=== PATIENT | male | born 1965 | race Caucasian/White ===

== ENCOUNTER 2025-02-25 15:16 | Inpatient (IN) | payer OTHER, SELFPAY ==
[2025-02-25] VITALS (12 sets, daily range): BP systolic 112–210; BP diastolic 73–119; BMI 24.8; BMI 22.8
--- NOTE | 2025-02-25 10:20 | ED.GENMED ---
History of Present Illness
General
Chief Complaint: Weakness
Source: patient
Exam Limitations: none
Time Seen by Provider: 02/25/25 10:10
History of Present Illness
History of Present Illness:
See MDM
Past History
Past History
ED Past Medical History: None
ED Past Surgical History: None
Social History
Tobacco: Non-smoker
Alcohol: None
Phy Exam
Physical Exam
Physical Exam:
See MDM
Course
Orders/Labs/Results
Orders:
Orders
02/25/25 10:17
Iohexol [Omnipaque] See Protocol PO NOW STA
02/25/25 10:18
Electrocardiogram (*1) Urgent
Reason for Study: Fatigue / Weakness
EKG- Treatment ONCE
02/25/25 10:19
CT Abd/pel (oral only)-DH Only Urgent
Comment: modified due to elevated optical scientist
Reason For Exam: general abd pain and weakness
0.9% Sodium Chloride 1000 ml [Nss] 1,000 ml IV BOLUS
02/25/25 10:22
Complete Blood Count/With Diff Urgent
Comprehensive Metabolic Panel Urgent
Lipase Urgent
Magnesium Urgent
PTT Urgent
Prothrombin Time Urgent
Troponin I Urgent
02/25/25 10:33
Iohexol [Omnipaque] See Protocol PO NOW STA
02/25/25 10:35
Kenny Placement- Treatment ONCE
Reason for insertion: Acute Retention
02/25/25 10:56
Cardiac Monitoring- Treatment ONCE
Calcium Gluconate 1,000 mg IV NOW STA
Dextrose 50%-Water [Dextrose 50% Syringe] 12.5 grams IV [id number] PRN
Dextrose 50%-Water [Dextrose 50% Syringe] 25 grams IV NOW STA
Insulin Human Regular [Novolin R] 10 units IV NOW STA
Sodium Bicarbonate 50 meq IV NOW STA
Sodium Zirconium Cyclosilicate [Lokelma] 10 gram PO NOW STA
02/25/25 10:57
Bedside Glucose PRE IV Insulin- HyperK+ NOW
02/25/25 11:04
Consult Urology [UROLOGY CONSULT] Routine
Consulting Provider: Ino Mishra Jr.
Was physician already notified: Yes
02/25/25 11:05
Tamsulosin [Flomax] 0.4 mg PO NOW STA
02/25/25 11:12
Urinalysis Reflex To Culture Urgent
Date Specimen was Collected: 02/25/25
Time Specimen was Collected: 11:09
Urine Microscopic Reflex Cult Urgent
02/25/25 12:27
Bedside Glucose POST IV Insulin- HyperK+ Q1HX2,Q2HX2
02/25/25 13:54
Potassium Urgent
02/25/25 13:58
Aspirin 325 mg PO NOW STA
02/25/25 14:00
Labetalol HCl [Trandate] 10 mg IV NOW STA
02/25/25 14:02
Morphine Sulfate 4 mg IV NOW STA
Abnormal Lab Results
02/25/25 02/25/25 02/25/25
10:22 11:12 12:29
RBC 4.41 L 10^6/uL
(4.70-6.10)
Hgb 12.4 L g/dL
(13.0-18.0)
Hct 37.3 L %
(39.0-52.0)
MPV 11.2 H fL
(7.4-10.4)
Absolute Neuts (auto) 6.9 H 10^3/uL
(1.4-6.5)
Absolute Lymphs (auto) 1.0 L 10^3/uL
(1.2-3.4)
Neutrophils % 78.0 H %
(42.2-75.2)
Lymphocytes % 11.6 L %
(20.5-51.1)
PT 14.9 H Sec
(11.4-14.6)
Potassium 6.8 H* mmol/L
(3.5-5.1)
Carbon Dioxide 14 L* mmol/L
(22-30)
BUN 116 H* mg/dl
(9-20)
Creatinine 18.2 H* mg/dL
(0.7-1.3)
Glucose 107 H mg/dl
(70-99)
AST 14 L U/L
(17-59)
Troponin I 0.484 H* ng/ml
Ur Occult Blood Reflex 4+ A
(Negative)
Urine RBC 30-40 A /HPF
(0-2)
POC Glucose 113 H mg/dl
(70-99)
02/25/25
13:28
RBC
Hgb
Hct
MPV
Absolute Neuts (auto)
Absolute Lymphs (auto)
Neutrophils %
Lymphocytes %
PT
Potassium
Carbon Dioxide
BUN
Creatinine
Glucose
AST
Troponin I
Ur Occult Blood Reflex
Urine RBC
POC Glucose 117 H mg/dl
(70-99)
02/25/25 10:22
Vital Signs
Initial and Last Documented VS:
Initial Vital Signs
Temp Pulse Resp BP Pulse Ox
98.0 F 72 18 187/104 99
02/25/25 10:11 02/25/25 10:11 02/25/25 10:11 02/25/25 10:11 02/25/25 10:11
Last Documented Vital Signs
Temp Pulse Resp BP Pulse Ox
97.7 F 79 21 174/103 98
02/25/25 11:35 02/25/25 13:00 02/25/25 13:00 02/25/25 13:00 02/25/25 13:00
MDM/Problems Addressed
Differential Diagnosis Includes:
HPI and MDM Narrative:
59-year-old male presenting for evaluation of approximately 1 month of fatigue and malaise. Patient states it started with what felt like prostate issues. He was having trouble urinating. He then got the GI bug and started develop urinary
incontinence when he slept. Now he is starting to notice mucus when he has the stool. He states he feels 'off'. He does have a strong family history of colon cancer but states he has had recent colonoscopies which had small polyps. He did go to
urgent care given duration of symptoms and they did blood work. Patient was found to have mild hyperkalemia and elevated creatinine. On exam, patient is weak and fatigued. Will give IV fluids. Will obtain bladder scan with concern for overflow
incontinence. Will obtain CT Abd/pelvis to look for cancer versus infection etiology
Physical exam
General: Weak and fatigued
HEENT: protecting airway. Dry mucous membranes
Neck: appears supple
CV: No evidence of cyanosis. Regular rate and rhythm
Resp: No accessory muscle use
Abd: Mildly distended but nontender
Extremities: No deformities
Neuro: alert
Psych: Normal affect
Skin: Intact
Problems Addressed including Acute and Chronic Conditions affecting care:
1. Generalized weakness and fatigue
Acuity: acute
Prognosis: stable
Details: Will obtain basic blood work to rule out any metabolic abnormality
2. Abdominal pain
Acuity: acute
Prognosis: stable
Details: Will obtain CT abdomen/pelvis
3. Dehydration
Acuity: acute
Prognosis: stable
Details: Will give IV fluids
4. Post renal obstruction
Acuity: acute
Prognosis: unstable
Details: Bedside bladder scan shows greater than 900 mL of urine. This could explain his acute renal failure. Will place a Kenny catheter
5. Hyperkalemia
Acuity: Unstable
Prognosis: Likely in setting of acute renal failure from postrenal obstruction
Details: Patient requiring insulin, bicarb and calcium and Lokelma
Updates
10:30 AM bedside bladder scan shows greater than 900 mL of urine. Patient will attempt to urinate but will plan on Kenny catheter
11 AM blood work consistent with acute renal failure and hyperkalemia. Will give insulin, Lokelma, calcium and bicarb
2 PM I updated patient on CT findings then I raised concern for metastatic disease in his spine. Patient does state that he has underlying back pain.
Troponin also found to be elevated but EKG nonischemic. Unsure if he had a recent cardiac event. Will give aspirin
Differential Diagnosis (but not limited to): Pancreatic cancer, colon cancer, distended bladder, renal disease
Testing considered: Lactic acid
Drug therapy (if applicable): OTC meds, please see d/c instruction regarding Rx drugs
Amount and/or Complexity of Data Reviewed
Clinical info obtained from: Patient
External data reviewed: N/A
Labs I independently reviewed (but not limited to): Acute renal failure
Radiology: The CT scan was personally and independently reviewed. In addition, official CT report reviewed.
Pulse Ox: not hypoxic
EKG independently reviewed: Sinus rhythm, normal axis, no STEMI, concern for peaked T waves
Assistant Activities Director: Sinus rhythm
Critical Care: The high probability of a clinically significant, sudden or life threatening deterioration of the cardiovascular/ system(s) required my full and direct attention, intervention and personal management. The aggregate critical care
time was 33 minutes. This time is in addition to time spent performing reported procedures but includes the following:
[x] Data Review and interpretation
[x] Patient assessment and monitoring of vital signs
[x] Documentation
[x] Medication orders and management
Risk of Complication:
Social Determinants of health: Good social support
Discussed with other providers: Urologist, hospitalist
Escalation of Care includes Admit/Obs: Given acute renal failure, will admit
Occasional wrong word or 'sound a like' substitutions may have occurred due to the inherent limitations of voice recognition software. Read the chart carefully and recognize, using context, where substitutions have occurred.
*Critical Care Note
Total Time (30-74mins, 75-104mins- exclusive of procedures): 33 min
ED Attending Note
-
Portions of this chart may have been created with voice recognition software.� Occasional wrong word or��sound alike� substitutions may have occurred due to the inherent limitations of voice recognition software.
Discharge Plan
Departure
Patient Disposition: Admit
Date of Disposition: 02/25/25
Time of Disposition: 14:04
Admit to: Telemetry
Presentation/result/management discussed w/ accepting MD/DO: Hospitalist
Discharge Problem:
Acute renal failure (ARF), Acute urinary retention, Hyperkalemia
Prescriptions:
No Action
No Current Medications
0
Referrals:
NONE,* [Family Provider] -
Interventions
Interventions:
*Risk Screen - Suicide Last Done: 02/25/25 10:11
*General Assessment Last Done: 02/25/25 10:11
*Neglect/Abuse Screening Last Done: 02/25/25 10:11
*ED- Fall Risk Assessment Last Done: 02/25/25 10:11
*ED COVID-19 Vaccine History Last Done: 02/25/25 10:11
ED- Cardiac Assessment Last Done: 02/25/25 10:11
ED- Neurological Assessment Last Done: 02/25/25 10:11
ED- Pulmonary Assessment Last Done: 02/25/25 10:11
Discharge Date and Time
Print Language: GHANAIAN
[2025-02-25 10:32] LABS: % Basophils 0.6 % (0-2); % Eosinophils 2.7 % (0-6); % Immature Granulocytes 0.4 % (0-0.5); % Lymphocytes 11.6 % (20.5-51.1); % Monocytes 6.7 % (1.7-9.3); Absolute Basophils 0.1 10^3/uL (0-0.2); Absolute Eosinophils 0.2 10^3/uL (0-0.7); Absolute Monocytes 0.6 10^3/uL (0.1-0.6); Absolute Neutrophils 6.9 10^3/uL (1.4-6.5); Hematocrit 37.3 % (39.0-52.0); Hemoglobin 12.4 g/dL (13.0-18.0); Mean Corp Hgb Conc. 33.2 g/dL (33.0-37.0); Mean Corpuscular Hgb 28.1 pg (27.0-31.0); Mean Corpuscular Volume 84.6 fL (80.0-94.0); Mean Platelet Volume 11.2 fL (7.4-10.4); Nucleated Red Blood Cells % 0 % (-); Platelet Count 209 10^3/uL (130-400); Red Blood Cell Count 4.41 10^6/uL (4.70-6.10); Red Cell Dist. Width 13.6 % (11.5-14.5); White Blood Cell Count 8.9 10^3/uL (4.8-10.8)
[2025-02-25] MEDS: OMNIPAQUE 50 ML PO ×2 (10:32→10:33)
[2025-02-25] MEDS: NSS 1000 IV ×2 (10:33→16:55)
[2025-02-25 10:41] LABS: INR 1.13; PT 14.9 Sec (11.4-14.6)
[2025-02-25 10:51] LABS: ALT (SGPT) 15 U/L (0-50); AST (SGOT) 14 U/L (17-59); Albumin 4.3 g/dl (3.5-5.0); Alkaline Phosphatase 97 U/L (38-126); Blood Urea Nitrogen 116 mg/dl (9-20); Calcium 9.7 mg/dl (8.4-10.2); Carbon Dioxide 14 mmol/L (22-30); Chloride 107 mmol/L (98-107); Glucose 107 mg/dl (70-99); Lipase 123 U/L (23-300); Magnesium 2.1 mg/dl (1.6-2.3); Potassium 6.8 mmol/L (3.5-5.1); Sodium 140 mmol/L (135-145); Total Bilirubin 0.6 mg/dl (0.2-1.3); Total Protein 6.6 g/dl (6.3-8.2)
[2025-02-25 11:04] LABS: Estimated Creatinine Clearance 4 ml/min; Troponin I 0.484 ng/ml; eGFR 2.65
[2025-02-25] MEDS: CALCIUM GLUCONATE 1000 MG IV (11:11)
[2025-02-25] MEDS: SODIUM BICARBONATE 50 MEQ IV (11:11)
[2025-02-25] MEDS: NOVOLIN R 10 UNITS IV (11:11)
[2025-02-25] MEDS: DEXTROSE 50% SYRINGE 25 GRAMS IV (11:11)
[2025-02-25] MEDS: LOKELMA 10 GRAM PO ×2 (11:15→17:04)
[2025-02-25] MEDS: FLOMAX 0.4 MG PO (11:25)
[2025-02-25 11:50] LABS: Urine Albumin Negative (Neg - Trace); Urine Bilirubin Negative (Negative); Urine Character Clear (Clear); Urine Color Yellow; Urine Glucose Negative (Negative); Urine Ketone Negative (Negative); Urine Leukocyte Negative (Negative); Urine Nitrite Negative (Negative); Urine Occult Blood 4+ (Negative); Urine Urobilinogen Negative (Neg - 1+)
[2025-02-25 12:26] LABS: Urine Red Blood Cell 30-40 /HPF (0-2); Urine Squamous Cell None seen /LPF (Few); Urine White Cell None Seen /HPF (0-5)
[2025-02-25 12:30] LABS: Glucose - Point of Care 113 mg/dl (70-99)
[2025-02-25 13:29] LABS: Glucose - Point of Care 117 mg/dl (70-99)
[2025-02-25] MEDS: ASPIRIN 325 MG PO (14:25)
[2025-02-25] MEDS: TRANDATE 10 MG IV (14:25)
[2025-02-25] MEDS: MORPHINE SULFATE 4 MG IV (14:26)
--- NOTE | 2025-02-25 14:36 | HPS.HSE ---
Family Physician
-
Family Physician: * NONE
Chief Complaint
-
generalized weakness
History of Present Illness
59-year-old male with PMH for testicular cancer presenting for evaluation of approximately 1 month of fatigue and malaise. he was having trouble emptying his bladder completely. he noted to have urgency especially at night, later he started wearing
dependants as he was having incontinence of urine. He then got the GI bug. he was having diarrhea and dry heaves. he is still having dry heaves and intermittently diarrhea with some blood in his stool at times. his last colonoscopy was ten years
ago.he now noticing mucous in his stool.patient stated poor appetite but denied weight loss. stated BAZAN. denied chest pain, sob. denied runny nose,congestion and cough. he also complained of garza splints at times. patient feels very weak, tired.
upon arrival he was noted to have FLORENCIA, metabolic acidosis and urinary retention.
Kenny placed in ER. Urology consulted. Patient received a dose of aspirin, calcium gluconate, D50, and insulin 10 units, labetalol 10 mg, morphine sulfate, sodium chloride, sodium bicarb, Lokelma and Flomax in ER. Admitted for further management
CT obtained in ER with the impression of Moderate bilateral hydronephrosis and severe bilateral hydroureter. No obstructing mass or radiopaque stone noted.
Moderate prostate hypertrophy. Severe diffuse bladder wall thickening. This can be seen with cystitis or bladder outlet obstruction.
Kenny catheter in bladder. Air in the bladder likely due to recent instrumentation. Infection cannot be clearly excluded.
Too small to characterize hypodense hepatic lesion likely a small cyst or hemangioma.
Small pericardial effusion.
Findings suggesting mild blastic osseous metastatic disease.
Medical History
Past Medical History
Past Medical History: Reports Other
Additional Past Medical History:
testicular cancer
Past Surgical History: Reports Other
Additional Past Surgical History:
testicuarl surgery
Social History
Tobacco: Non-smoker
Alcohol: Occasional
Drug: Marijuana
Personal: Single
Living: With Roomate
Family History
Family History: Not pertinent
Allergies / Home Medications
Allergies reflects when Allergies were last updated in [employer].
Home Medications with original date entered in [employer]
Allergy/Medication List:
Allergies
Allergy/AdvReac Type Severity Reaction Status Date / Time
No Known Allergies Allergy Verified 02/25/25 10:20
Home Medications
No Meds [No Current Medications] 02/25/25
Review of Systems
-
Constitutional: Reports No Symptoms and Fatigue
EENT: Reports No Symptoms
Respiratory: Reports No Symptoms
Cardiac: Reports No Symptoms
Abdomen/GI: Reports Nausea, Diarrhea and Bloody Stools
: Reports Frequency and Urgency
Musculoskeletal: Reports No Symptoms
Skin: Reports No Symptoms
Neurological: Reports Weakness
Endocrine: Reports No Symptoms
Hematologic/Lymphatic: Reports No Symptoms
Psych: Reports No Symptoms
Physical Exam
Vital Signs
Vital Signs
Temp Pulse Resp BP Pulse Ox
97.7 F 76 15 183/97 98
02/25/25 11:35 02/25/25 14:25 02/25/25 14:15 02/25/25 14:25 02/25/25 14:15
Physical Exam
General: Well Developed, Well Nourished and No Apparent Distress
HEENT: NormoCephalic, Moist mucous membranes and Atraumatic
Respiratory: Clear
Cardiac: S1/S2 and Regular Rhythm; No Murmur or Rub
GI: Soft, Non Tender, Non Distended and Normal Bowel Sounds; No Organomegaly
Rectal: Deferred by Provider
Musculoskeletal: No Clubbing, No Cyanosis and No Edema
Skin: No Rash
Neuro: AO x 3 and Nonfocal/grossly intact
Psych: Calm
Laboratory Results
-
02/25/25 10:22
02/25/25 13:54
Laboratory Results
PT 14.9 Sec (11.4-14.6) H 02/25/25 10:22
INR 1.13 02/25/25 10:22
APTT 29.0 Sec (23.4-35.0) 02/25/25 10:22
Total Bilirubin 0.6 mg/dl (0.2-1.3) 02/25/25 10:22
AST 14 U/L (17-59) L 02/25/25 10:22
ALT 15 U/L (0-50) 02/25/25 10:22
Alkaline Phosphatase 97 U/L (38-126) 02/25/25 10:22
Troponin I 0.484 ng/ml H* 02/25/25 10:22
Lipase 123 U/L (23-300) 02/25/25 10:22
Data Reviewed
-
CT Scan: Report Reviewed by me
Lab Data: Labs Reviewed by me
Impression/Plan
-
# Acute renal failure likely from urinary retention/moderate bilateral hydro and severe bilateral hydroureter.
# History of BPH
-Kenny placed
-Urology consulted
-CT abdomen pelvis with impression of Moderate bilateral hydronephrosis and severe bilateral hydroureter. No obstructing mass or radiopaque stone noted.Moderate prostate hypertrophy. Severe diffuse bladder wall thickening. This can be seen with
cystitis or bladder outlet obstruction.Kenny catheter in bladder. Air in the bladder likely due to recent instrumentation. Infection cannot be clearly excluded.Too small to characterize hypodense hepatic lesion likely a small cyst or
hemangioma.Small pericardial effusion. suggesting mild blastic osseous metastatic disease. Clinical and laboratory correlation recommended. If not known, further evaluation with a whole body bone scan recommended Mild decreased height of L1. Mild
age indeterminate compression fracture versus findings due to degenerative disease. Clinical correlation recommended
#CT concern for mild blastic osseous metastatic disease
# Metabolic acidosis/acute kidney injury likely dehydration
-CO2 14, BUN 116, creatinine 18.2, k 6.8
-received sodium bicarb in ER, fluids in ER
-stat bmp
-nephrology consulted
# Elevated troponin likely NSTEMI
-Trop 0.484, denied chest pain
-trend trop
-EKG with NSR
#HTN
-labetalol in ER
-hydralazine added
#hxt of testicular cancer
#DVT prophylaxis
-scd
#CODE status
-full code
[2025-02-25 15:53] LABS: Glucose - Point of Care 119 mg/dl (70-99)
--- NOTE | 2025-02-25 16:21 | W.PN.UPDATE ---
Addendum entered and electronically signed by Azael Rocha MD 02/25/25 19:14:
Given mucus and a little blood in the stools recently, can benefit from colonoscopy outpatient vs. inpatient.
Original Note:
Update Note
Progress Note Update
This note serves as an addendum to the H&P by RADHA Potter, on 02/25/25.
History of Presenting Illness
59-year-old male with past medical history of testicular cancer (30 to 40 years ago, when he was in his 20s) presented for evaluation of approximately 1-2 week history of fatigue, malaise and back pain. Patient said that about 2 months ago, he
started having trouble emptying his bladder completely. He then had a 'stomach virus' about 3 weeks ago, when he had nausea, vomiting, and diarrhea -- at that time he said his GI illness made him incontinent of urine. He started wearing Depends
pads. Patient's diarrhea resolved and his GI illness with nausea and vomiting resolved, he started eating better and then he started having some normal brown stool, at times with mucus and a little blood. He also noted transient numbness in his left
hand which has resolved.
Vital Signs
Afebrile
BP elevated
RR okay, saturating oxygen well on room air
Physical Exam
General: Well Developed, Well Nourished and No Apparent Distress
HEENT: Normocephalic, Moist mucous membranes and Atraumatic
Respiratory: Clear to Auscultation Bilaterally
Cardiac: S1/S2 and Regular Rhythm
GI: Soft, Non Distended and Normal Bowel Sounds. Mildly tender in the lower abdomen.
: Kenny catheter with red urine
Musculoskeletal: No Cyanosis and No Edema
Skin: Warm. Dry.
Neuro: AAO x 3 and Nonfocal/grossly intact
Psych: Calm
Assessment/Plan
#Presentation with fatigue and weakness
-Suspected from inability to properly urinate for the past 2 months with associated renal failure, and also from a possible neoplastic process (see below)
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
#History of testicular cancer 30 to 40 years ago (when patient was in his 20s) status post orchiectomy
#Mild decreased height of L1
#Mild age indeterminate compression fracture versus findings due to degenerative disease
-Will need oncology evaluation outpatient vs. inpatient as well as staging
#Metabolic acidosis/acute kidney injury likely obstructive FLORENCIA given patient's difficulty urinating over the past ~2 months
#Moderate bilateral hydronephrosis and severe bilateral hydroureter
#Moderate prostate hypertrophy
#Severe diffuse bladder wall thickening
-Initial labs: CO2 14, BUN 116, creatinine 18.2
-Received sodium bicarb in ER, fluids in ER
-UA not suggestive of UTI
-Lab numbers improving with Kenny Catheter and the above treatment
-Continue Kenny Catheter
-Urology consulted, appreciate evaluation and recommendations
#Small Pericardial Effusion on CT Imaging
-Will need echocardiogram to follow-up on this -- echo ordered
#Hyperkalemia
-Initial potassium 6.8, received Brad gluconate, Sodium Bicarb, Lokelma, Insulin+Dextrose in the emergency room
-Subsequent potassium improved
-Continue Lokelma
-Continue Kenny Catheter
#Hepatic Lesion on CT Imaging
#Elevated troponin
-Possibly from very high blood pressure/increased afterload and/or from decreased clearance with FLORENCIA
-Trop 0.484, denied chest pain, no history of heart disease
-Trend troponins
-EKG not highly suspicious for ACS
#Hypertension
-labetalol in ER
-hydralazine added
-Start Amlodipine
DVT Prophylaxis: SCDs and Heparin subq.
Code Status: Full Code
[2025-02-25 16:28] LABS: Blood Urea Nitrogen 98 mg/dl (9-20); Calcium 9.6 mg/dl (8.4-10.2); Carbon Dioxide 18 mmol/L (22-30); Chloride 109 mmol/L (98-107); Estimated Creatinine Clearance 6 ml/min; Glucose 132 mg/dl (70-99); Potassium 5.7 mmol/L (3.5-5.1); Sodium 141 mmol/L (135-145); eGFR 4.46
--- NOTE | 2025-02-25 16:46 | CON.MD ---
Addendum entered and electronically signed by Ino Mishra Jr., MD 02/25/25 17:19:
ct scan also shows ? bone mets
will check psa in am and pt will need bone scan
Original Note:
Consultation - Medical
-
see dictated note
pt with remote hx of testicular ca
for almost 2 months- trouble urinating progressing to incontinence
no hematuria or dysuria
no regular med checks- no psa
presents with weakness/fatigue
cr up to 18
2 liters in bladder with CT showing bilateral hydro- very thickened bladder wall
currently resting- urine florian colored
plan
reviewed with pt
muñoz/hydration/track cr level
start flomax and proscar
will need to be discharged with muñoz
will follow
[2025-02-25] MEDS: NORVASC 5 MG PO (17:04)
[2025-02-25 17:35] LABS: Glucose - Point of Care 144 mg/dl (70-99)
[2025-02-25 18:48] LABS: Troponin I 0.492 ng/ml
[2025-02-25] MEDS: HEPARIN 5000 UNITS SC (20:26)
[2025-02-25 21:45] LABS: Blood Urea Nitrogen 82 mg/dl (9-20); Calcium 9.6 mg/dl (8.4-10.2); Carbon Dioxide 17 mmol/L (22-30); Chloride 109 mmol/L (98-107); Estimated Creatinine Clearance 8 ml/min; Glucose 160 mg/dl (70-99); Potassium 5.2 mmol/L (3.5-5.1); Sodium 141 mmol/L (135-145); eGFR 6.09
[2025-02-25 23:40] LABS: Troponin I 0.768 ng/ml
[2025-02-26 02:47] LABS: Blood Urea Nitrogen 70 mg/dl (9-20); Calcium 9.5 mg/dl (8.4-10.2); Carbon Dioxide 18 mmol/L (22-30); Chloride 110 mmol/L (98-107); Estimated Creatinine Clearance 11 ml/min; Glucose 124 mg/dl (70-99); Potassium 4.9 mmol/L (3.5-5.1); Sodium 142 mmol/L (135-145); eGFR 9.12
--- NOTE | 2025-02-26 03:24 | PTCARENOTE ---
Pt's BMP resulted with a potassium of 4.9. Lokelma ordered for 0600. This RN messaged RADHA Cruz via TT to assess if still appropriate to give at 0600. This RN was instructed to hold 0600 dose of Lokelma and pass on to day shift nurse to
check with hospitalists to see if they want to continue Lokelma. Care ongoing.
[2025-02-26 03:38] VITALS: BP 137/87
[2025-02-26] MEDS: LOKELMA PO (05:26)
[2025-02-26] MEDS: NSS 1000 IV ×2 (05:52→14:00)
[2025-02-26 06:10] LABS: Hematocrit 32.7 % (39.0-52.0); Hemoglobin 11.1 g/dL (13.0-18.0); Mean Corp Hgb Conc. 33.9 g/dL (33.0-37.0); Mean Corpuscular Volume 82.6 fL (80.0-94.0); Platelet Count 187 10^3/uL (130-400); Red Blood Cell Count 3.96 10^6/uL (4.70-6.10); Red Cell Dist. Width 13.6 % (11.5-14.5); White Blood Cell Count 7.1 10^3/uL (4.8-10.8)
[2025-02-26 06:38] LABS: Troponin I 0.954 ng/ml
[2025-02-26 06:43] LABS: Blood Urea Nitrogen 63 mg/dl (9-20); Calcium 9.5 mg/dl (8.4-10.2); Carbon Dioxide 22 mmol/L (22-30); Chloride 108 mmol/L (98-107); Estimated Creatinine Clearance 13 ml/min; Glucose 127 mg/dl (70-99); Potassium 4.8 mmol/L (3.5-5.1); Sodium 142 mmol/L (135-145); eGFR 11.39
--- NOTE | 2025-02-26 06:54 | W.PN.UPDATE ---
Update Note
Progress Note Update
2300�Troponin 0.768, patient asymptomatic, denies chest discomfort/pain, pressure, no sob, n/v. Repeat troponin ordered. (Previous troponin 10 am 0.484. 6 pm 0.492)
0600 Troponin�0.954.
Troponin trending up t/o night. CBC Cardiology consult ordered.
[2025-02-26 07:00] VITALS: BP 146/90
[2025-02-26 07:35] LABS: Hepatitis C Antibody Negative (Negative)
[2025-02-26] MEDS: NORVASC 5 MG PO (08:34)
[2025-02-26] MEDS: HEPARIN SC ×2 (08:34→08:43)
[2025-02-26] MEDS: PROSCAR 5 MG PO (08:34)
--- NOTE | 2025-02-26 08:40 | CON.CAR ---
Consultation
Consultation Request
Date/Time Consultation Requested: 02/26/2025 at 0658 hrs
Date/Time Consultation Performed: 02/26/2025 at 0840hrs
Requesting Provider: RADHA Cruz
Performing Provider: Edgardo Galindo MD
Reason for Consultation: Elevated troponin
Medical History
-
Chief Complaint: went to ER for 1 month of progressive fatigue and generalized weakness
History of Present Illness:
59 yo man with 1 moth of progressive fatigue / weakness. Remote history of testicular cancer. In ER found to have severe renal failure (Cr 18) and hyperkalemia (K+ 6.8). Bladder U/S + large PVR, 2 L drained after Kenny placement. CT scan showed:
small pericardial effusion, bilat hydronephrosis, bladder thickening, bone blastic osseous changes c/w METASTATIC disease.
EKG and troponin are abnormal. No CP or palpitations.
Past Medical History
Past Medical History: Other (Hx of remote testicular cancer)
Past Surgical History: Other (Testicular surgery for cancer remotely)
Social History
Tobacco: Non-Smoker
Personal: Single
Family History
Family History: Other (Colon Cancer)
Allergies / Home Medications
Allergy/AdvReac Type Severity Reaction Status Date / Time
No Known Allergies Allergy Verified 02/25/25 10:20
�Medication �Instructions �Recorded �Confirmed �Type
No Meds [No Current Medications] 02/25/25 02/25/25 History
Review of Systems
-
All other systems: Negative unless noted
Cardiac: No Symptoms
Physical Exam
Vital Signs
Temp Pulse Resp BP Pulse Ox
99.7 F 74 18 146/90 96
02/26/25 07:00 02/26/25 08:34 02/26/25 07:00 02/26/25 08:34 02/26/25 07:00
Lab Results
03/30/25 05:42
02/26/25 05:42
Troponin I 0.954 ng/ml H* 02/26/25 05:42
Physical Exam
General: Well Developed
HEENT: Normocephalic
Cardiac: S1/S2, Regular Rhythm and Murmur
GI: Soft
Musculoskeletal: No Clubbing
Skin: Warm
Neuro: Awake
Psych: Calm
Impression / Plan
-
Abnormal troponin
- Likely non-ischemic myocardial injury in the setting of ARF
- Will need to trend troponin to peak
- Will likely offer outpatient stress testing for risk stratification
Abnormal EKG
- T abnormality of uncertain significance/etiology, cannot rule out ischmia
- Will check Echo
- Repeat EKG daily for next 2 days
Soft systolic murmur in aortic region
- Suspect AoV sclerosis
- Echo
Atrial tachycardia
- Tele with 2-3 very short (less than 10 beats) of atrial tachycardia, one with aberrancy mimicking VT
- Monitor on tele
- Watch for progression to AFib
- No specific treatment needed now
Possible small pericardial effusion noted by CT
- Likely related to renal failure but with concern for metastatic disease based on CT need to consider other etiologies
- Echo and if effusion will plan to repeat echo in several weeks/months
Acute renal failure from obstructive uropathy
- Urology involved
Suspected Metastatic disease noted with blastic bone lesions
- Will need to be worked up
Data Reviewed
-
EKG: Tracing Personally Visualized and interpreted (3 tracings all the same over 8 hrs: NSR, inf-lat T abnl, consider ischemia)
Radiology: Report Reviewed by me
CT Scan: Report Reviewed by me (small pericardial effusion, bilat hydronephrosis, bladder thickening, bone blastic osseous changes c/w METASTATIC disease)
--- NOTE | 2025-02-26 08:56 | W.PN.URO.CBU ---
Today's Communication / Plan
-
continue muñoz
hydration
track cr level
bone scan
Assessment / Plan
-
ARF/hydro due to urinary retention
hematuria due to bladder decompression
high susp for met prostate cancer
reviewed findings with pt
hold anticoagulants for now given ongoing hematuria
continue flomax and proscar
bone scan in am- if + /bx not necessary to make dz and will need oncology eval
will follow
Diagnosis
-
Date of Service: February 26, 2025
-
Patient Diagnosis:
ARF
urinary retention
BPH
hematuria
suspected met prostate cancer
Subjective
-
pt stable- still occ feels weak
muñoz in place- still with hematuria- despite my suggestion to hold anticoagulants- subq heparin is ordered
cr down to 5
psa >400
VENANCIO- shows rock hard prostate highly susp for cancer
Objective
-
Vital Signs
Temp Pulse Resp BP Pulse Ox
99.7 F 74 18 146/90 96
02/26/25 07:00 02/26/25 08:34 02/26/25 07:00 02/26/25 08:34 02/26/25 07:00
Intake and Output
02/25/25 02/26/25 02/27/25
06:59 06:59 06:59
Intake Total 600 / 600
Output Total 5100 / 5100
Balance -4500 / -4500
Intake:
Oral fluids 600 / 600
Output:
Urine, Muñoz 5100 / 5100
Laboratory Results
02/26/25 05:42
02/26/25 05:42
Review of Systems
-
Constitutional: Fatigue
Respiratory: No Symptoms
Cardiac: No Symptoms
Abdomen/GI: No Symptoms
: Other (muñoz discomfort)
Physical Exam
-
General - no acute distress
Abdomen - soft, non-tender,
Genitalia - normal- muñoz in place- left test absent
Rectal - very firm irregular prostate c/w cancer
[2025-02-26 11:00] VITALS: BP 142/90
[2025-02-26 11:23] LABS: Troponin I 0.884 ng/ml
--- NOTE | 2025-02-26 12:53 | W.PN.HOSP.TC ---
Today's Communication/Plan
-
maintain Kenny
Maintain IVF
Chest x ray in am
consult oncology
Assessment / Plan
Assessment / Plan
Physical Exam
General: Well Developed, Well Nourished and No Apparent Distress
HEENT: Normocephalic, Moist mucous membranes and Atraumatic
Respiratory: Clear
Cardiac: S1/S2 and mild murmur.
GI: Soft, Non Tender, Non Distended and Normal Bowel Sounds; No Organomegaly
Rectal: no bleeding
Musculoskeletal: No Clubbing, No Cyanosis and No Edema
Skin: No Rash
: Kenny, mild hematuria
Neuro: AO x 3 and Nonfocal/grossly intact
Psych: Calm
# Acute renal failure likely from urinary retention/moderate bilateral hydro and severe bilateral hydroureter.
# History of BPH
No flank pain
Less hematuria
Creatinine is coming down
-Kenny placed
-Urology consulted, f/w recommendations, did not need CBI
-CT abdomen pelvis with impression of Moderate bilateral hydronephrosis and severe bilateral hydroureter. No obstructing mass or radiopaque stone noted.Moderate prostate hypertrophy. Severe diffuse bladder wall thickening. This can be seen with
cystitis or bladder outlet obstruction.Kenny catheter in bladder. Air in the bladder likely due to recent instrumentation. Infection cannot be clearly excluded.Too small to characterize hypodense hepatic lesion likely a small cyst or
hemangioma.Small pericardial effusion. suggesting mild blastic osseous metastatic disease. Clinical and laboratory correlation recommended. If not known, further evaluation with a whole body bone scan recommended Mild decreased height of L1. Mild
age indeterminate compression fracture versus findings due to degenerative disease. Clinical correlation recommended
#CT concern for mild blastic osseous metastatic disease
PSA elevated, seems c/w Prostate disease
Will order chest x ray in AM, no respiratory problems per patient
# Metabolic acidosis/acute kidney injury/ hyperkalemia
-CO2 14, BUN 116, creatinine 18.2, k 6.8
-received sodium bicarb in ER, fluids in ER
- Consult nephrology
# non-ischemic myocardial injury in the setting of ARF
- denied chest pain
-trend trop
-EKG with NSR
Per cardiology: outpatient stress testing for risk stratification
#Primary HTN
HTN urgency on admission
Started amlodipine
#hxt of testicular cancer > 20 years, s/p surgery and radiation.
#DVT prophylaxis
-scd
#CODE status
-full code
Total time spent to see the patient, examine the patient, review data and lab results, discuss treatment plan with patient, end user consultant, nursing staff around 55 minutes
Anticipated Discharge: > 48 hours
Subjective/Interval History
-
Date of Service: February 26, 2025
No chest pain
No abdominal pain
Objective Data
-
Labs:
Laboratory Results
02/26/25 02/26/25
02:01 05:42
WBC 7.1
Hgb 11.1 L
Hct 32.7 L
Plt Count 187
Sodium 142 142
Potassium 4.9 4.8
Chloride 110 H 108 H
Carbon Dioxide 18 L 22
BUN 70 H 63 H
Creatinine 6.5 H* 5.4 H*
Glucose 124 H 127 H
Calcium 9.5 9.5
Vital Signs:
Vital Signs
Temp Pulse Resp BP Pulse Ox
99.7 F 78 20 142/90 98
02/26/25 11:00 02/26/25 11:00 02/26/25 11:00 02/26/25 11:00 02/26/25 11:00
I&O
02/25/25 02/26/25 02/27/25
06:59 06:59 06:59
Intake Total 600 / 600
Output Total 5100 / 5100
Balance -4500 / -4500
--- NOTE | 2025-02-26 13:49 | W.CON.NEPH ---
Consultation
-
Date/Time Consultation Requested: 02/26/25, 1:30 PM
Date/Time Consultation Performed: 02/26/25, 1:50 PM
Requesting Provider: Dr. Kessler
Performing Provider: Dr. Laguna
Reason for Consultation: Acute kidney injury
Medical History
-
Chief Complaint: , acute kidney injury
History of Present Illness:
The patient is a 59-year-old male who
underwent left orchiectomy for testicular cancer in his 20s. He had
no adjuvant therapy and no recurrences. Since then, he has not seen
a urologist and he has not had regular medical followup.
For the last 2 months, he has had increasing difficulty urinating
with hesitancy and sense of incomplete emptying progressing to
overflow incontinence. He had some bowel dysfunction. He was
brought to the emergency room today for severe fatigue and
weakness. He also reported some mild gastroenteritis symptoms of
diarrhea and vomiting.
On arrival to the emergency room, he was noted to have some
abdominal distention and a postvoid residual showing almost 2 L of
retained urine. A Kenny catheter was placed draining a large amount
of urine. Labs revealed a creatinine of 18 and a BUN of 116. A subsequent CAT scan
showed severe bilateral hydroureteronephrosis and extremely
thickened bladder wall and a moderately enlarged prostate. There
were also some findings concerning for perhaps blastic bone
disease.Follow-up echocardiogram revealed small pericardial effusion. A Kenny catheter was placed and he is been nonoliguric over the past 24 hours with creatinine now down to 5.4 and nephrology was consulted for acute kidney injury in the setting
of bilateral obstructive uropathy.
Past Medical History
Testicular cancer with prior left orchiectomy
Social History
Tobacco: Non-Smoker
Alcohol: Occasional
Family History
no CK D
Allergies / Home Medications
Allergy/AdvReac Type Severity Reaction Status Date / Time
No Known Allergies Allergy Verified 02/25/25 10:20
�Medication �Instructions �Recorded �Confirmed �Type
No Meds [No Current Medications] 02/25/25 02/25/25 History
Review of Systems
-
History Source: Patient
All other systems: Negative unless noted
Constitutional: Fatigue
: Dysuria, Frequency and Dark Urine
Physical Exam
Vital Signs
Vital Signs
Temp Pulse Resp BP Pulse Ox
99.7 F 78 20 142/90 98
02/26/25 11:00 02/26/25 11:00 02/26/25 11:00 02/26/25 11:00 02/26/25 11:00
Lab Results
02/26/25 05:42
02/26/25 05:42
WBC 7.1 10^3/uL (4.8-10.8) 02/26/25 05:42
RBC 3.96 10^6/uL (4.70-6.10) L 02/26/25 05:42
Hgb 11.1 g/dL (13.0-18.0) L 02/26/25 05:42
Hct 32.7 % (39.0-52.0) L 02/26/25 05:42
Plt Count 187 10^3/uL (130-400) 02/26/25 05:42
Sodium 142 mmol/L (135-145) 02/26/25 05:42
Potassium 4.8 mmol/L (3.5-5.1) 02/26/25 05:42
Chloride 108 mmol/L (98-107) H 02/26/25 05:42
Carbon Dioxide 22 mmol/L (22-30) 02/26/25 05:42
BUN 63 mg/dl (9-20) H 02/26/25 05:42
Creatinine 5.4 mg/dL (0.7-1.3) H* 02/26/25 05:42
eGFR 11.39 02/26/25 05:42
Glucose 127 mg/dl (70-99) H 02/26/25 05:42
Calcium 9.5 mg/dl (8.4-10.2) 02/26/25 05:42
Albumin 4.3 g/dl (3.5-5.0) 02/25/25 10:22
Physical Exam
General: AOx3, No Distress and Nontoxic
HEENT: PERRL, EOMI, Anicteric, Conjunctivae Clear, Hearing Normal, Oropharynx Clear/Moist, Dentition Intact, Facial Symmetry, Neck Supple, Trachea Midline, No JVD and No Thyromegaly
Respiratory: Clear
Cardiac: S1/S2 and Regular Rate/Rhythm
Breast: Deferred by me
Abdomen: Soft, Nontender, Nondistended, Normal Bowel Sounds and No Hepatosplenomegaly
Rectal: Deferred by Provider
Genito-urinary: Bloody Urine and Other (Kenny catheter to gravity)
Musculoskeletal: No Clubbing, No Cyanosis and No Edema
Skin: Warm, Dry, No Cyanosis, Normal Turgor and No Bruising
Neuro: Nonfocal/Grossly Intact
Hematologic/Lymphatic: No Cervical Lymphadenopathy, No Submandibular Lymphadenopathy and No Supraclavicular Lymphadenopathy
Psych: Mood/afflect pleasant, Insight/judgement good and Appropriate
Data Reviewed
-
Radiology: Report Reviewed by me (. CT scan of abdomen and pelvis showing bilateral hydronephrosis)
Labs: Labs Reviewed by me ( BMP, urinalysis)
Old Records: Requested
Assessment/Plan
-
Impression;
Acute kidney injury in the setting of bilateral hydronephrosis
Chronic urinary retention
Hematuria
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
History of prior testicular cancer with subsequent left orchiectomy
Plan:
FLORENCIA secondary to obstructive uropathy with creatinine notable for rapid improvement from 18-5 over past 24 hours secondary to Kenny catheter placement
Maintain isotonic saline. However, this may need to be transitioned to more hypotonic fluids if he has significant postobstructive diuresis Which can result in a free water deficit
Monitor closely for electrolyte abnormalities including hypokalemia and hypomagnesemia in the setting of postobstructive diuresis
No indication for dialysis
Blood pressure was elevated on presentation and patient is now on amlodipine
[2025-02-26 15:00] VITALS: BP 130/79
[2025-02-26 19:32] VITALS: BP 139/85
[2025-02-26 23:04] VITALS: BP 154/100
--- NOTE | 2025-02-27 00:15 | W.PN.UPDATE ---
Update Note
Progress Note Update
Called to evaluate patient for elevated HR in 140-160's. BP 163/88. Elevated HR started around 23:20 with short bursts into the 140's-160's. Sustained elevated HR in the 160's started around 23:42 and lasted until 00:12. EKG showed Critical test
result: High HR, 163. Atrial flutter with variable AV block. ST & T wave abnormality, consider lateral ischemia. Patient stated he felt anxious, slight heart racing, felt lightheaded and had been making his bed prior to event. Patient denies chest
pain/discomfort, shortness of breath, n/v. Elevated HR broke w/o medication or intervention.
Repeat EKG done after elevated HR broke. Repeat EKG showed NSR, Right atrial enlargement, T wave abnormality, consider lateral ischemia, Prolonged QTc at 462, abnormal EKG, HR 91. Appears similar to EKG done 02/26/25 @ 9:23. Patient stated he is
feeling calmer, not as anxious, heart is not racing. Appears comfortable in bed. Asked that patient remain on bed rest until re-evaluted in the am. Will advise Cardiology, already following.
[2025-02-27] MEDS: NSS 1000 IV ×2 (02:21→16:12)
[2025-02-27 03:20] VITALS: BP 153/94
--- NOTE | 2025-02-27 04:07 | PTCARENOTE ---
[employer] notified @2352 of patient HR on tele going up into the 170s but not sustaining. Patient's HR then began sustaining between 140s to 160, BP 163/88. Patient report to nurse he was standing, fixing sheets on bed. Patient c/o some lightheadedness but
stated 'that's not new'. [employer] in to see patient, EKG ordered. EKG showed Critical test result: High HR, 163. Atrial flutter with variable AV block. ST & T wave abnormality, consider lateral ischemia. Within 5 minutes of completing first EKG patient's
elevated HR broke without medication. Repeat EKG showed NSR, right atrial enlargement, T wave abnormality, consider lateral ischemia, prolonged QT, HR 91. Patient AAOx3 throughout event, resting comfortably in bed, will continue plan of care. [employer]
advise patient to be on bed rest until evaluated in AM.
[2025-02-27 07:10] LABS: Hematocrit 33.7 % (39.0-52.0); Hemoglobin 11.5 g/dL (13.0-18.0); Mean Corp Hgb Conc. 34.1 g/dL (33.0-37.0); Mean Corpuscular Hgb 28.1 pg (27.0-31.0); Mean Corpuscular Volume 82.4 fL (80.0-94.0); Mean Platelet Volume 11.4 fL (7.4-10.4); Platelet Count 180 10^3/uL (130-400); Red Blood Cell Count 4.09 10^6/uL (4.70-6.10); Red Cell Dist. Width 13.7 % (11.5-14.5); White Blood Cell Count 7.8 10^3/uL (4.8-10.8)
[2025-02-27 07:32] VITALS: BP 131/91
[2025-02-27 07:33] LABS: Blood Urea Nitrogen 31 mg/dl (9-20); Calcium 8.9 mg/dl (8.4-10.2); Carbon Dioxide 21 mmol/L (22-30); Chloride 108 mmol/L (98-107); Estimated Creatinine Clearance 37 ml/min; Glucose 105 mg/dl (70-99); Magnesium 1.2 mg/dl (1.6-2.3); Potassium 4.2 mmol/L (3.5-5.1); Sodium 140 mmol/L (135-145); eGFR 39.89
--- NOTE | 2025-02-27 07:45 | W.PN.URO.CBU ---
Today's Communication / Plan
-
bone scan
Assessment / Plan
-
ARF/hydro due to urinary retention
hematuria due to bladder decompression
high susp for met prostate cancer
reviewed findings with pt
hold anticoagulants for now given ongoing hematuria
continue flomax and proscar
bone scan today- if + /bx not necessary to make dz and will need oncology eval and will discuss med plan
leg bag teaching/VN consult
Diagnosis
-
Date of Service: February 27, 2025
-
Patient Diagnosis:
ARF
urinary retention
BPH
hematuria
suspected met prostate cancer
Subjective
-
pt comfortable
urine still florian colored
cr down to 1.9
troponin down trending
Objective
-
Vital Signs
Temp Pulse Resp BP Pulse Ox
99.1 F 75 16 131/91 97
02/27/25 07:32 02/27/25 07:32 02/27/25 07:32 02/27/25 07:32 02/27/25 07:32
Intake and Output
02/26/25 02/27/25 02/28/25
06:59 06:59 06:59
Intake Total 600 / 600 1680 / 1680 1000 / 1000
Output Total 5100 / 5100 5000 / 5000
Balance -4500 / -4500 -3320 / -3320 1000 / 1000
Intake:
Oral fluids 600 / 600 1680 / 1680
IV fluids (Total) 1000 / 1000
Output:
Urine, Muñoz 5100 / 5100 5000 / 5000
Laboratory Results
02/27/25 06:33
02/27/25 06:33
Review of Systems
-
Constitutional: Fatigue
Respiratory: No Symptoms
Cardiac: No Symptoms
Abdomen/GI: No Symptoms
Physical Exam
-
General - no acute distress
Abdomen - soft, non-tender
Genitalia - muñoz in place
[2025-02-27] MEDS: TOPROL XL 50 MG PO (07:54)
[2025-02-27] MEDS: NORVASC 5 MG PO (07:54)
[2025-02-27] MEDS: PROSCAR 5 MG PO (07:54)
--- NOTE | 2025-02-27 09:22 | W.PN.HOSP.TC ---
Today's Communication/Plan
-
Add Toprol
Chest x ray, bone scan
f/w oncology & cardiology recommendations
Assessment / Plan
Assessment / Plan
Physical Exam
General: Well Developed, Well Nourished and No Apparent Distress
HEENT: Normocephalic, Moist mucous membranes and Atraumatic
Respiratory: Clear
Cardiac: S1/S2 and mild murmur.
GI: Soft, Non Tender, Non Distended and Normal Bowel Sounds; No Organomegaly
Rectal: no bleeding
Musculoskeletal: No Clubbing, No Cyanosis and No Edema
Skin: No Rash
: Kenny, less e hematuria
Neuro: AO x 3 and Nonfocal/grossly intact
Psych: Calm
# Acute renal failure likely from urinary retention/moderate bilateral hydro and severe bilateral hydroureter.
# History of BPH
No flank pain
Less hematuria
Creatinine is coming down
-Kenny placed
-Urology consulted, f/w recommendations, did not need CBI
Consulted nephrology
#CT concern for mild blastic osseous metastatic disease
PSA elevated, seems c/w Prostate disease
Chest x ray in AM, no respiratory problems per patient
Bone scan is ordered.
Consulted oncology
# Metabolic acidosis/acute kidney injury/ hyperkalemia
-CO2 14, BUN 116, creatinine 18.2, k 6.8
-received sodium bicarb in ER, fluids in ER
- good improvement.
# Run of atrial flutter
started the pt on Toprol
With ongoing hematuria, unable to give AC
[id number] around 1 for HTN
# non-ischemic myocardial injury in the setting of ARF
- denied chest pain
Echocardiogram showed LVEF 55 to 60% with no regional wall motion abnormality. Normal RV size and function, mild AR.
#Primary HTN
HTN urgency on admission
Started amlodipine, finasteride and BB
#hxt of testicular cancer > 20 years, s/p surgery and radiation.
#DVT prophylaxis
-scd
#CODE status
-full code
Total time spent to see the patient, examine the patient, review data and lab results, discuss treatment plan with patient, consultants, nursing staff around 55 minutes
Anticipated Discharge: 24 - 48 hours
Subjective/Interval History
-
Date of Service: February 27, 2025
no chest pain
No sob
No abd pain
Objective Data
-
Labs:
Laboratory Results
02/27/25
06:33
WBC 7.8
Hgb 11.5 L
Hct 33.7 L
Plt Count 180
Sodium 140
Potassium 4.2
Chloride 108 H
Carbon Dioxide 21 L
BUN 31 H
Creatinine 1.9 H
Glucose 105 H
Calcium 8.9
Vital Signs:
Vital Signs
Temp Pulse Resp BP Pulse Ox
99.1 F 75 16 131/91 97
02/27/25 07:32 02/27/25 07:32 02/27/25 07:32 02/27/25 07:32 02/27/25 07:32
I&O
02/26/25 02/27/25 02/28/25
06:59 06:59 06:59
Intake Total 600 / 600 1680 / 1680 1240 / 1240
Output Total 5100 / 5100 5000 / 5000
Balance -4500 / -4500 -3320 / -3320 1240 / 1240
--- NOTE | 2025-02-27 10:39 | W.PN.CD ---
Today's Communication / Plan
-
Agree with addition of BB to amlodipine for HTN and rate control of AFlutter
No anticoagulation for now
Anticipate outpatient lipids and stress test
Ablation may be an option for treatment if needed
Impression / Plan
-
Abnormal troponin, from a non-ischemic myocardial injury in the setting of ARF
- Troponin peak 0.9
- Will offer outpatient stress testing for risk stratification
Abnormal EKG
- T abnormality of uncertain significance/etiology, cannot rule out ischemia
- Echo with no evidence of prior IN
- Repeat EKG daily for next 2 days
- Anticipate outpatient lipid panel and outpatient stress test
Soft systolic murmur: Mild MR/AR seen on echo
Sustained paroxysmal atrial flutter, typical, last night, 2:1 at 163 bpm
- Minimal to no symptoms, denies prior episodes, but really almost asymptomatic
- onset 02/26/2025 from 2342 to 0012 , 30 minutes
- Earlier had several short bursts (<10 beats) of ATach
- [id number] 1 for HTN
- For now NO ANTICOAGULATION, very low burden, low risk score, and likely will be needing procedures
HTN
- The LVH on echo with LAE and prior ambulatory BP have been abnormal
- Now on 2 meds, BB and amlodipine
Trivial pericardial effusion on echo
Acute renal failure from obstructive uropathy, BPH
- Urology involved
Suspected Metastatic disease noted with blastic bone lesions
- Will need to be worked up
Subjective: No CP or dyspnea
Echo 02/27/2025: LVEF 55-60%, mild cLVH/MR/AR/ALHAJI, trivial pericardial effusion
Physical Exam
Vital Signs/Labs
Vital Signs
Temp Pulse Resp BP Pulse Ox
99.1 F 75 16 131/91 97
02/27/25 07:32 02/27/25 07:32 02/27/25 07:32 02/27/25 07:32 02/27/25 07:32
02/26/25 02/27/25 02/28/25
06:59 06:59 06:59
Actual Weight 64.013 kg
02/27/25 06:33
02/27/25 06:33
PT 14.9 Sec (11.4-14.6) H 02/25/25 10:22
INR 1.13 02/25/25 10:22
APTT 29.0 Sec (23.4-35.0) 02/25/25 10:22
Magnesium 1.2 mg/dl (1.6-2.3) L 02/27/25 06:33
LAB Results
02/25/25 02/25/25 02/25/25
10:22 18:11 23:08
Troponin I 0.484 H* 0.492 H* 0.768 H* D
02/26/25 02/26/25 02/26/25
05:42 10:51 17:00
Troponin I 0.954 H* 0.884 H* Cancelled
Physical Exam
Constitutional: No acute distress
Cardiovascular: Rhythm & rate is regular and Pedal edema is absent
Respiratory: Respiratory effort normal and Lungs clear to auscul.
GI: Soft, Distention absent and Non tender
Neuro/Psych: AO x 3
Data Reviewed
-
Date of Service: February 27, 2025
[2025-02-27 11:49] VITALS: BP 135/88
--- NOTE | 2025-02-27 13:07 | CM ---
Patient seen at bedside.
CM consult for VN muñoz cath - PATIENT DOES NOT HAVE A PCP
Christine called [facility] - self [facility] - will verify if patient has ins.
Patient states recently obtained ins in Dec.
[facility] - policy #: [id number]
IA completed
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
PLOF: Independent, drives
Denies DME
Denies VN/Rehab
Patient states does not have a PCP - information given to patient on primary care residency clinic
Called [facility] [phone] & spoke with Radha - they do not have appts until end of February. Info given to patient.
PCP: No PCP
Pharmacy: [facility]
PLAN: cm follow hospital progress, home, will need PCP for VN
[2025-02-27 14:42] VITALS: BP 149/88
--- NOTE | 2025-02-27 15:35 | CON.ONC ---
Addendum entered and electronically signed by Shirley Albarran MD 02/27/25 22:54:
Pt seen and examined by me personally, chart reviewed.
He has a history of testicular cancer s/p orchiectomy, no radiation or chemo.
He also has a family history of cancer in both parents.
Pt presented with urinary retention, found to have blastic bone lesions and marked PSA elevation.
Personally reviewed images from scan whowing low-volume disease burden.
Recommend:
- prostate biopsy for tissue, okay to do outpt, discussed with Dr. Mishra
- start Casodex in anticipate of outpt Lupron. Also as outpt, anticipate adding either abiraterone or apalutamide
- outpt referral for germline mutation testing
- CT abd/pelvis with IV ontrast once kidney function improves, exclude visceral mets and pelvic adenopathy
Pt asymptomatic from the bone metastases.
Thank you for consult, will follow along with you.
Original Note:
Documented by User: Davon Milner MD, Resident 02/27/25 15:57
Impression
Impression
59 yo male
Elevated PSA
Moderately Enlarged Prostate
Blastic Lesions on the thoracic/lumbar spine
Acute Urinary Retention
Plan
Plan
- Newly elevated PSA to 414 w/ sx of urinary retention, hydronephrosis, bladder outlet obstruction and blastic lesions in the spine suggestive of mets
- Bone scan demonstrating abnormal foci of uptake consistent with metastatic disease
- Newly diagnosed metastatic prostate cancer
- Would recommend Prostate Bx for [place] and for further germline/somatic genetic testing (BRCA, etc.) to guide treatment options
- Will likely start on Casodex (Bicalutamide) antiandrogen therapy inpatient, with plans to start on Lupron as outpatient
Patient History
History of Present Illness
59 year old male with a past medical history significant for testicular cancer (in his mid 20s) who presented for evaluation of urinary incontinence. He reports a 1 month history of worsening fatigue and malaise, during which time he was having
symptoms of increased urgency. He then contracted a GI illness, leading to symptoms of dry heaving, diarrhea, and intermittent bloody stools. While having GI symptoms he also had several episodes of urinary incontinence requiring him to wear depends
at night time. There is a family history of colon cancer. he reports his last colonoscopy demonstrated a few small polyps, though it was over 10 years ago. Prior to his GI illness he reports no episodes of bloody bowel movements, or pain/trouble
passing stool. he does not report any weight loss, fever, chills, night sweats, bleeding, bruising, or swelling. He has no history of BPH or urinary incontinence prior to this past month.
CT Abd/Pelvis was done which showed moderately enlarged prostate and mild blastic osseous lesions in the thoracic and lumbar spine suggestive of metastatic disease. PSA was elevated at 414.
Past-Medical/Surgical History
Past Medical history: Testicular cancer
Past Surgical History: Orchiectomy
Patient Medication
�Medication �Instructions �Recorded �Confirmed �Last Taken �Type
No Meds [No Current Medications] 02/25/25 02/25/25 Unknown History
Active Medications
Generic Name Dose Route Start Last Admin
Trade Name Freq PRN Reason Stop Dose Admin
Acetaminophen 650 mg 02/25/25 16:29
Acetaminophen 325 Mg Tablet PO 03/25/25 16:28
Q4HPRN PRN
mild pain/BAZAN/temp> 100.4F
Amlodipine Besylate 5 mg 02/25/25 17:00 02/27/25 07:54
Amlodipine 5 Mg Tablet PO 03/25/25 16:59 5 mg
DAILY NINO Administration
Bisacodyl 10 mg 02/25/25 16:29
Bisacodyl 10 Mg Rectal Suppository RECTAL 03/25/25 16:28
[id number] PRN
constipation
Finasteride 5 mg 02/26/25 08:00 02/27/25 07:54
Finasteride 5 Mg Tablet PO 03/26/25 07:59 5 mg
DAILY NINO Administration
Hydralazine HCl 10 mg 02/25/25 16:29
Hydralazine 20 Mg/Ml Vial IV 03/25/25 16:28
Q6HPRN PRN
hypertension
Sodium Chloride 1,000 mls @ 100 mls/hr 02/25/25 16:29 02/27/25 02:21
Nss IV 1,000 mls
.Q10H NINO Administration
Metoprolol Succinate 50 mg 02/27/25 06:32 02/27/25 07:54
Metoprolol 50 Mg Extended Release Tablet PO 03/27/25 06:31 50 mg
DAILY NINO Administration
Polyethylene Glycol 17 grams 02/25/25 16:29
Polyethylene Glycol Powder 17 Grams Packet PO 03/25/25 16:28
DAILYPRN PRN
constipation
Senna/Docusate Sodium 1 tablet 02/25/25 16:29
Docusate W/Senna (Vannesa-Colace) Tablet PO 03/25/25 16:28
BIDPRN PRN
constipation
Sodium Chloride 0 flush 02/25/25 17:00
Sodium Chloride 0.9% (Flush) Syringe IV 03/25/25 16:59
PER PROTOCOL NINO
Review of Systems
-
History Source: Patient
Constitutional: Reports Fatigue and Weakness; Denies Fever, Weight Loss, No Appetite, Sleep Disturbance, Night Sweats or Chills
EENT: Reports No Symptoms
Respiratory: Reports No Symptoms
Cardiac: Reports No Symptoms
GI: Reports Diarrhea and Bloody Stools; Denies Abdominal Pain or Vomiting
Breast: Reports N/A
: Reports Incontinence and Urgency; Denies Dark Urine
Musculoskeletal: Reports No Symptoms
Skin: Reports No Symptoms
Neuro: Reports Weakness; Denies Dizzy, Headache or Lightheadedness
Endocrine: Reports No Symptoms
Hematologic/Lymphatic: Denies Bleeding, Swollen Glands or Bruising
Allergy / Immunology: Reports No Symptoms
Psych: Reports No Symptoms
Physical Exam
-
General: Well Developed, Well Nourished, No Apparent Distress and Comfortable
HEENT: Moist Mucous Membranes; Negative Jaundice
Cardiology: Normal Sinus Rhythm, S1 and S2; Negative Murmur
Pulmonary: Clear; Negative Wheezes, Rales or Rhonchi
GI: Soft and Normal Bowel Sounds; Negative Distended
Genito-Urinary: No Costovertebral Tenderness and Kenny (pink colored urine in Kenny; clearer than prior)
Musculoskeletal: No Clubbing, No Cyanosis and No Edema
Extremities: Pulses Present
Neurology: Non Focal
Skin: Warm, Dry and IV Access / Catheter Site
Hematologic / Lymphatic: No Lymphadenopathy and No Petechiae
Psych: Calm and Intact Judgement/Insight
Labs
Lab Results
WBC 7.8 10^3/uL (4.8-10.8) 02/27/25 06:33
RBC 4.09 10^6/uL (4.70-6.10) L 02/27/25 06:33
Hgb 11.5 g/dL (13.0-18.0) L 02/27/25 06:33
Hct 33.7 % (39.0-52.0) L 02/27/25 06:33
MCV 82.4 fL (80.0-94.0) 02/27/25 06:33
MCH 28.1 pg (27.0-31.0) 02/27/25 06:33
MCHC 34.1 g/dL (33.0-37.0) 02/27/25 06:33
RDW 13.7 % (11.5-14.5) 02/27/25 06:33
Plt Count 180 10^3/uL (130-400) 02/27/25 06:33
MPV 11.4 fL (7.4-10.4) H 02/27/25 06:33
Abs Immat Gran (auto) 0.0 10^3/uL (0-0.05) 02/25/25 10:22
Absolute Neuts (auto) 6.9 10^3/uL (1.4-6.5) H 02/25/25 10:22
Absolute Lymphs (auto) 1.0 10^3/uL (1.2-3.4) L 02/25/25 10:22
Absolute Monos (auto) 0.6 10^3/uL (0.1-0.6) 02/25/25 10:22
Absolute Eos (auto) 0.2 10^3/uL (0-0.7) 02/25/25 10:22
Absolute Basos (auto) 0.1 10^3/uL (0-0.2) 02/25/25 10:22
Immature Gran % 0.4 % (0-0.5) 02/25/25 10:22
Neutrophils % 78.0 % (42.2-75.2) H 02/25/25 10:22
Lymphocytes % 11.6 % (20.5-51.1) L 02/25/25 10:22
Monocytes % 6.7 % (1.7-9.3) 02/25/25 10:22
Eosinophils % 2.7 % (0-6) 02/25/25 10:22
Basophils % 0.6 % (0-2) 02/25/25 10:22
Creatinine 1.9 mg/dL (0.7-1.3) H 02/27/25 06:33
Vital Signs
Vital Signs
Temp Pulse Resp BP Pulse Ox
99.2 F 73 16 149/88 97
02/27/25 14:42 02/27/25 14:42 02/27/25 14:42 02/27/25 14:42 02/27/25 14:42

Documented by User: Shirley Albarran MD 02/27/25 22:47
Impression
Impression
59 yo male
Elevated PSA
Moderately Enlarged Prostate
Blastic Lesions on the thoracic/lumbar spine
Acute Urinary Retention
Plan
Plan
- Newly elevated PSA to 414 w/ sx of urinary retention, hydronephrosis, bladder outlet obstruction and blastic lesions in the spine suggestive of mets
- Bone scan demonstrating abnormal foci of uptake consistent with metastatic disease
- Newly diagnosed metastatic prostate cancer
- Would recommend Prostate Bx for [place] and for somatic genetic testing to guide treatment options
- Will likely start on Casodex (Bicalutamide) antiandrogen therapy inpatient, with plans to start on Lupron as outpatient
Patient History
Past-Medical/Surgical History
Past Medical history: Testicular cancer treated with surgery only, no radiation or chemotherapy
Past Surgical History: Orchiectomy
Social History
Tobacco: Non-Smoker
Alcohol: Occasional
Family History
Mother had colon cancer, widely metastatic
Father had lung cancer (smoker)
Siblings are well
--- NOTE | 2025-02-27 17:09 | W.PN.NEPH.PH ---
Today's Communication / Plan
-
cotn IVF, IV Mg
labs in am
Assessment/Plan
-
Impression;
Acute kidney injury in the setting of bilateral hydronephrosis
Chronic urinary retention
Hematuria
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
History of prior testicular cancer with subsequent left orchiectomy
Plan:
FLORENCIA secondary to obstructive uropathy with creatinine notable for rapid improvement from 18-5 and now t 1.9 post Muñoz catheter placement
polyuric and c/o dizziness hence cont isotonic saline. However, this may need to be transitioned to more hypotonic fluids if he has significant postobstructive diuresis Which can result in a free water deficit
Monitor closely for electrolyte abnormalities including hypokalemia and hypomagnesemia in the setting of postobstructive diuresis
replace mg
Blood pressure stable now on amlodipine
follow labs
-
-
Date of Service: February 27, 2025
CC / HPI / ROS
-
Chief Complaint:
FLORENCIA
History of Present Illness:
cr down to 1.9, polyuric 5lit with muñoz
BP stable , mg low 1.2, na 140
Review of Systems:
no cp or sob
feels dizzy
Labs
-
Labs:
WBC 7.8 10^3/uL (4.8-10.8) 02/27/25 06:33
RBC 4.09 10^6/uL (4.70-6.10) L 02/27/25 06:33
Hgb 11.5 g/dL (13.0-18.0) L 02/27/25 06:33
Hct 33.7 % (39.0-52.0) L 02/27/25 06:33
Plt Count 180 10^3/uL (130-400) 02/27/25 06:33
Sodium 140 mmol/L (135-145) 02/27/25 06:33
Potassium 4.2 mmol/L (3.5-5.1) 02/27/25 06:33
Chloride 108 mmol/L (98-107) H 02/27/25 06:33
Carbon Dioxide 21 mmol/L (22-30) L 02/27/25 06:33
BUN 31 mg/dl (9-20) H 02/27/25 06:33
Creatinine 1.9 mg/dL (0.7-1.3) H 02/27/25 06:33
eGFR 39.89 02/27/25 06:33
Glucose 105 mg/dl (70-99) H 02/27/25 06:33
Calcium 8.9 mg/dl (8.4-10.2) 02/27/25 06:33
Albumin 4.3 g/dl (3.5-5.0) 02/25/25 10:22
Physical Exam
-
Vital Signs:
Vital Signs
Temp Pulse Resp BP Pulse Ox
99.2 F 73 16 149/88 97
02/27/25 14:42 02/27/25 14:42 02/27/25 14:42 02/27/25 14:42 02/27/25 14:42
Cardiovascular:: Regular rate and rhythm
Respiratory:: Bilateral: CTA
Lung Excursion:: Normal
Abdomen:: Nontender and Soft
Extremity Edema:: None: Bilateral:
Muñoz Catheter: Yes
[2025-02-27] MEDS: MAGNESIUM SULFATE 100 IV (17:36)
[2025-02-27 19:20] VITALS: BP 139/82
[2025-02-27 23:20] VITALS: BP 134/83
[2025-02-28] MEDS: NSS 1000 IV (02:19)
[2025-02-28 03:40] VITALS: BP 130/86
[2025-02-28 06:56] LABS: Blood Urea Nitrogen 22 mg/dl (9-20); Calcium 9.1 mg/dl (8.4-10.2); Carbon Dioxide 27 mmol/L (22-30); Chloride 105 mmol/L (98-107); Estimated Creatinine Clearance 44 ml/min; Glucose 102 mg/dl (70-99); Potassium 4.2 mmol/L (3.5-5.1); Sodium 139 mmol/L (135-145); eGFR 49.02
[2025-02-28 07:30] VITALS: BP 134/83
[2025-02-28] MEDS: NORVASC 5 MG PO (07:55)
[2025-02-28] MEDS: TOPROL XL 50 MG PO (07:55)
[2025-02-28] MEDS: PROSCAR 5 MG PO (07:55)
--- NOTE | 2025-02-28 08:08 | W.PN.CD ---
Today's Communication / Plan
-
No anticoagulation
BP control
F/u with me in 2-4 months
Anticipate outpatient stress testing
OK from cardiac standpoint for needed prostate biopsy
Impression / Plan
-
Abnormal troponin, from a non-ischemic myocardial injury in the setting of ARF
- Troponin peak 0.9
- EKG with nonspecific inf-lat ST-T changes, could be from LVH but chronic ischemic heart disease is possible
- Will offer outpatient stress testing for risk stratification
Abnormal EKG
- T abnormality of uncertain significance/etiology, cannot rule out ischemia, but might just be from LVH
- Echo with no evidence of prior NC
- EKGs are stable
- Anticipate outpatient lipid panel and outpatient stress test
Soft systolic murmur: Mild MR/AR seen on echo
Sustained paroxysmal atrial flutter, typical, 2:1 at 163 bpm seen this hospital stay
- Minimal to no symptoms, denies prior episodes, but really almost asymptomatic
- onset 02/26/2025 from 2342 to 0012 , 30 minutes
- Earlier had several short bursts (<10 beats) of ATach
- [id number] 1 for HTN
- For now NO ANTICOAGULATION, very low burden, low risk score, and likely will be needing procedures
HTN
- The LVH on echo with LAE and prior ambulatory BP have been abnormal
- Now on 2 meds, BB and amlodipine
Trivial pericardial effusion on echo
Acute renal failure from obstructive uropathy, BPH
- Urology involved
- Cr 18.2 => 1.6 with Kenny Catheter
Suspected Metastatic Prostate cancer
- blastic bone lesions seen on imaging
- PSA over 400
- Bone scan + for several areas of abnormal uptake c/w bone mets
- Oncology involved, for biopsy
Subjective: No CP or dyspnea
Echo 02/27/2025: LVEF 55-60%, mild cLVH/MR/AR/ALHAJI, trivial pericardial effusion
Physical Exam
Vital Signs/Labs
Vital Signs
Temp Pulse Resp BP Pulse Ox
98.3 F 63 16 134/83 97
02/28/25 07:30 02/28/25 07:30 02/28/25 07:30 02/28/25 07:30 02/28/25 07:30
02/27/25 06:33
02/28/25 06:08
PT 14.9 Sec (11.4-14.6) H 02/25/25 10:22
INR 1.13 02/25/25 10:22
APTT 29.0 Sec (23.4-35.0) 02/25/25 10:22
Magnesium 1.2 mg/dl (1.6-2.3) L 02/27/25 06:33
LAB Results
02/25/25 02/25/25 02/25/25
10:22 18:11 23:08
Troponin I 0.484 H* 0.492 H* 0.768 H* D
02/26/25 02/26/25 02/26/25
05:42 10:51 17:00
Troponin I 0.954 H* 0.884 H* Cancelled
Physical Exam
Constitutional: No acute distress
EENT: Anicteric
Cardiovascular: Rhythm & rate is regular, Pedal edema is absent and Systolic murmur present
Respiratory: Respiratory effort normal and Lungs clear to auscul.
GI: Soft, Distention absent and Non tender
Neuro/Psych: AO x 3
Data Reviewed
-
Date of Service: February 28, 2025
EKG: Other (Tele last 24 hrs: NO AT no AFlutter)
Medical Tests (PFT, Pathology etc): Report Reviewed by me (Nuc Med: Several areas of uptake c/w met disease)
--- NOTE | 2025-02-28 08:41 | W.PN.HOSP.TC ---
Today's Communication/Plan
-
Discharge with Kenny
Assessment / Plan
Assessment / Plan
Physical Exam
General: Well Developed, Well Nourished and No Apparent Distress
HEENT: Normocephalic, Moist mucous membranes and Atraumatic
Respiratory: Clear
Cardiac: S1/S2 and mild murmur.
GI: Soft, Non Tender, Non Distended and Normal Bowel Sounds; No Organomegaly
Rectal: no bleeding
Musculoskeletal: No Clubbing, No Cyanosis and No Edema
Skin: No Rash
: Kenny, clearing hematuria
Neuro: AO x 3 and Nonfocal/grossly intact
Psych: Calm
# Acute renal failure likely from urinary retention/moderate bilateral hydro and severe bilateral hydroureter.
# History of BPH
No flank pain
Less hematuria
Creatinine is coming down from 18 to 1.6
-Kenny placed, to leave with Kenny and f/w urologist.
-Urology consulted, f/w recommendations, did not need CBI
Consulted nephrology
#CT concern for mild blastic osseous metastatic disease
PSA elevated, seems c/w Prostate disease
Chest x ray in AM, no respiratory problems per patient
Bone scan is noted
Consulted oncology, OP follow up.
# Metabolic acidosis/acute kidney injury/ hyperkalemia
-CO2 14, BUN 116, creatinine 18.2, k 6.8
-received sodium bicarb in ER, fluids in ER
- good improvement.
# Run of atrial flutter
started the pt on Toprol
Runs resolving with Toprol XL 50 mg QD.
With ongoing hematuria, unable to give AC
[id number] around 1 for HTN only.
# non-ischemic myocardial injury in the setting of ARF
- denied chest pain
Echocardiogram showed LVEF 55 to 60% with no regional wall motion abnormality. Normal RV size and function, mild AR.
Appreciate cardiology help.
#Primary HTN
HTN urgency on admission
Started amlodipine, finasteride and BB
#hxt of testicular cancer > 20 years, s/p surgery and radiation.
#DVT prophylaxis
-scd
#CODE status
-full code
Total discharge time spent to see the patient, examine the patient, review data and lab results, discuss discharge plan with patient, consultants, nursing staff around 65 minutes
Anticipated Discharge: Today
Subjective/Interval History
-
Date of Service: February 28, 2025
Doing well
No pain in chest or abdomen
Objective Data
-
Labs:
Laboratory Results
02/28/25
06:08
Sodium 139
Potassium 4.2
Chloride 105
Carbon Dioxide 27
BUN 22 H
Creatinine 1.6 H
Glucose 102 H
Calcium 9.1
Vital Signs:
Vital Signs
Temp Pulse Resp BP Pulse Ox
98.3 F 63 16 134/83 97
02/28/25 07:30 02/28/25 07:30 02/28/25 07:30 02/28/25 07:30 02/28/25 07:30
I&O
02/27/25 02/28/25 03/01/25
06:59 06:59 06:59
Intake Total 1680 / 1680 4620 / 4620
Output Total 5000 / 5000 4400 / 4400
Balance -3320 / -3320 220 / 220
[2025-02-28 10:19] LABS: Magnesium 1.9 mg/dl (1.6-2.3)
--- NOTE | 2025-02-28 10:19 | W.PN.ONC ---
Today's Communication / Plan
-
d/c planning underway, with muñoz
will start casodex today
outpatient prostate biopsy by urology for MMR and molecular testing
will arrange med onc f/u in 1-2 weeks to plan further mgmt (Lupron and ASRI)
he's establishing care w/ a PMD
Impression
Impression
59 yo male
Elevated PSA
Moderately Enlarged Prostate
Blastic Lesions on the thoracic/lumbar spine
Acute Urinary Retention
Plan
Plan
- Newly elevated PSA to 414 w/ sx of urinary retention, hydronephrosis, bladder outlet obstruction and blastic lesions in the spine suggestive of mets
- Bone scan demonstrating abnormal foci of uptake consistent with metastatic disease
- Newly diagnosed metastatic prostate cancer
- Recommend Prostate Bx for [place] Scoring and for somatic genetic testing to guide treatment options
- Will start on Casodex (Bicalutamide) antiandrogen therapy inpatient, with plans to start on Lupron as outpatient
Subjective/Objective
Subjective/Objective
no complaints
Vital Signs:
Vital Signs
Temp Pulse Resp BP Pulse Ox
98.3 F 63 16 134/83 97
02/28/25 07:30 02/28/25 07:30 02/28/25 07:30 02/28/25 07:30 02/28/25 07:30
Lab Results:
Laboratory Data
WBC 7.8 10^3/uL (4.8-10.8) 02/27/25 06:33
Hgb 11.5 g/dL (13.0-18.0) L 02/27/25 06:33
Plt Count 180 10^3/uL (130-400) 02/27/25 06:33
PT 14.9 Sec (11.4-14.6) H 02/25/25 10:22
INR 1.13 02/25/25 10:22
APTT 29.0 Sec (23.4-35.0) 02/25/25 10:22
eGFR 49.02 02/28/25 06:08
Orders
Orders
Orders From Last 24 Hours
02/28/25 11:00
Bicalutamide [Casodex] 50 mg PO DAILY
[2025-02-28] MEDS: CASODEX 50 MG PO (11:07)
[2025-02-28 11:16] VITALS: BP 150/88
--- NOTE | 2025-02-28 11:52 | CM ---
Addendum entered by Roxi Black 02/28/25 14:15:
muñoz teaching completed by nursing
[facility] phone Number given to patient
friend to transport home
Original Note:
CM spoke with CHIQUIS from [employer] [phone]
Patient does not have home health coverage
tt hospitalist, urology
Nursing will educate on muñoz catheter and give patient supplies
[facility]CP on [facility]/01 at 9:30am
PLAN: Discharge to home
--- NOTE | 2025-02-28 12:05 | W.PN.URO.CBU ---
Today's Communication / Plan
-
continue muñoz
outpt follow up
Assessment / Plan
-
ARF/hydro due to urinary retention
hematuria due to bladder decompression
high susp for met prostate cancer
reviewed findings with pt
discharge with muñoz/flomax and proscar
reviewed with oncology- to begin casodex and i will see in office to arrange outpt cysto and bx in the next 10-14 days
Diagnosis
-
Date of Service: February 28, 2025
-
Patient Diagnosis:
ARF
urinary retention
BPH
hematuria
suspected met prostate cancer
Subjective
-
pt feels well
urine clear
cr down to 1.6
bone scan showed small bone mets
Objective
-
Vital Signs
Temp Pulse Resp BP Pulse Ox
98.4 F 70 18 150/88 97
02/28/25 11:16 02/28/25 11:16 02/28/25 11:16 02/28/25 11:16 02/28/25 11:16
Intake and Output
02/27/25 02/28/25 03/01/25
06:59 06:59 06:59
Intake Total 1680 / 1680 4620 / 4620
Output Total 5000 / 5000 4400 / 4400 450 / 450
Balance -3320 / -3320 220 / 220 -450 / -450
Intake:
Oral fluids 1680 / 1680 1620 / 1620
IV fluids (Total) 2900 / 2900
IV piggybacks 100 / 100
Output:
Urine, Muñoz 5000 / 5000 4400 / 4400 450 / 450
Laboratory Results
02/27/25 06:33
02/28/25 06:08
Physical Exam
-
General - no acute distress
--- NOTE | 2025-02-28 12:37 | W.DCSUMMARY ---
Discharge Summary
Discharge Data
Date of Admission: 02/25/25
Date of Discharge: 02/28/25
-
Pending Results: No
Hospital Course
59 years old male presented with history of weakness, fatigue, body aches and inability to pass urine over few weeks. Patient was wearing depends due to urinary incontinence. Patient was found to have acute kidney injury, metabolic acidosis,
hyperkalemia and elevated blood pressure. Imaging studies showed bilateral hydronephrosis with hydroureter, moderately enlarged prostate. Patient has history of testicular cancer status post surgery with no chemo or radiation. Patient was
admitted to the hospital. He received treatment for hyperkalemia with improvement. Blood pressure was controlled with additional blood pressure medication, amlodipine. Kenny catheter was placed immediately with good output. Creatinine starting
to trend down from 18 on admission to 1.6 upon discharge. Potassium level is stabilized. Patient was followed by urologist and catering operations manager. Prostatic specific antigen came back elevated with osteoblastic lesion seen on bone scan. Diagnosis was
consistent with prostate cancer. Oncology started the patient on Casodex. Patient also received Proscar and Flomax for prostate disease. Urology recommended to continue with Kenny catheter, outpatient follow-up. Patient had mildly positive
troponin which was nonischemic. Echocardiogram showed normal left ventricular function. Patient had runs of atrial flutter. Generation Technician evaluated the patient recommended to continue with beta-huan for now and outpatient follow-up for ischemic
evaluation. Patient did not have hypoxia, shortness of breath or chest pain. Patient remained hemodynamically stable. He was evaluated by case assembler. Patient had history of medical noncompliance and was counseled. Patient verbalized
understanding and willingness to continue to follow-up with outpatient doctors. Patient was discharged home in a stable condition.
Discharge Plan
-
Patient Disposition: Home (Routine Discharge)
Discharge Diagnosis/Procedures: -Acute kidney injury/acute urinary retention/obstructive uropathy status post placement of Kenny catheter
You are seen by urologist and catering operations manager. You will need to follow-up with urology regarding urine catheter and prostate disease management.
-Multiple blastic bone lesions, PSA elevation consistent with a prostate cancer
You will need to follow-up with urology and oncology for further management
-Sustained paroxysmal atrial flutter. You are seen by roller leveler operator. Echocardiogram showed mild mitral regurgitation/aortic regurgitation. You are started on new medicine called Toprol. You will need outpatient follow-up with cardiology for
outpatient stress testing for risk stratification.
-You are diagnosed with high blood pressure. You are started on new medication called amlodipine and Toprol. Amlodipine is calcium channel huan, possible side effect include hypotension and peripheral edema. Toprol is beta-huan to lower
your blood pressure and heart rate and control atrial rhythm. Possible side effects of Toprol include fatigue, hypotension, bradycardia.
Diet: As tolerated
Referrals:
Gilmar Laguna DO [Active] - in one month
Shirley Albarran MD [Active] - in one to two weeks
NONE,* [Family Provider] -
Ino Mishra Jr., MD [Active] - in one to two weeks
Catherine Bean MD, Resident [Transition Year Resident] - 03/02/25 9:30 am
Edgardo Galindo MD [Active] - 05/09/25 3:00 pm
Prescriptions:
New
metoprolol succinate 50 mg Tablet Extended Release 24 Hr
50 mg PO DAILY Qty: 30 0RF
amlodipine 5 mg Tablet
5 mg PO DAILY Qty: 30 0RF
finasteride 5 mg Tablet
5 mg PO DAILY Qty: 30 0RF
bicalutamide 50 mg Tablet
50 mg PO DAILY Qty: 30 0RF
tamsulosin [Flomax] 0.4 mg capsule
0.4 mg PO DAILY Qty: 30 0RF
Discharge Orders:
Discharge Patient (As Directed); Ordered 02/28/25
Ordered By: Nuno Kessler
Discharge Date and Time
Print Language: PUERTO RICAN
[2025-02-28] MEDS: NSS IV (12:57)
== END 2025-02-28 13:48 | disposition home or self-care (01) | DRG 723 ==
LOC: 3 WEST ACU 15:16
PROVIDERS: Nurse Practitioner Family; Registered Nurse; ADMITTING PHYSICIAN Hospitalist; ATTENDING PHYSICIAN Internal Medicine; CONSULT PHYSICIAN Internal Medicine Cardiovascular Disease; CONSULT PHYSICIAN Internal Medicine Hematology & Oncology; CONSULT PHYSICIAN Specialist; EMERGENCY PHYSICIAN Student in an Organized Health Care Education/Training Program
DX: C61 Malignant neoplasm of prostate (principal); C79.51 Secondary malignant neoplasm of bone; E87.20 Acidosis, unspecified; I48.92 Unspecified atrial flutter; N17.9 Acute kidney failure, unspecified; N13.30 Unspecified hydronephrosis; I47.19 Other supraventricular tachycardia; I5A Non-ischemic myocardial injury (non-traumatic); N39.498 Other specified urinary incontinence; E87.5 Hyperkalemia; I10 Essential (primary) hypertension; K76.89 Other specified diseases of liver; N40.1 Benign prostatic hyperplasia with lower urinary tract symptoms; Z91.199 Patient's noncompliance with other medical treatment and regimen due to unspecified reason; Z85.47 Personal history of malignant neoplasm of testis
CPT/HCPCS: 51702; 51798; 71046; 74176; 78306; 80048; 80053; 81003; 81015; 82962; 83690; 83735; 84132; 84153; 84484; 85025; 85027; 85610; 85730; 86803; 93005; 93306; 96374; 96375; 99291; A9503

== ENCOUNTER 2025-03-09 06:02 | Day surgery (SDC) | payer OTHER, SELFPAY ==
--- NOTE | 2025-03-07 15:40 | PTCARENOTE ---
Patients 4/1 ECG abnormal- reviewed by Dr. Cook- no additional testing required
[2025-03-09] VITALS (9 sets, daily range): BP systolic 110–133; BP diastolic 70–81
[2025-03-09] MEDS: NORMOSOL-R/PLASMALYTE-A 1000 IV (06:36)
== END 2025-03-09 09:30 | disposition home or self-care (01) ==
LOC: SDS 06:02
PROVIDERS: ATTENDING PHYSICIAN Specialist
DX: C61 Malignant neoplasm of prostate (principal); N32.89 Other specified disorders of bladder; R33.8 Other retention of urine; R97.20 Elevated prostate specific antigen [PSA]
CPT/HCPCS: 52204; 55700; 88305

== ENCOUNTER → 2025-03-21 12:27 | Outpatient (REF) | payer OTHER, SELFPAY ==
[2025-03-21 12:46] VITALS: BP 108/77; BP_SYST 78
[2025-03-21] MEDS: ANCEF 10 IV (13:06)
[2025-03-21 14:51] VITALS: BP 120/82; BP_SYST 77
[2025-03-21 14:55] VITALS: BP 114/80
[2025-03-21 15:00] VITALS: BP 116/81
[2025-03-21 15:16] VITALS: BP 117/68
== END ==
LOC: RADI 12:27
PROVIDERS: ATTENDING PHYSICIAN Internal Medicine Hematology & Oncology
DX: C61 Malignant neoplasm of prostate (principal)
CPT/HCPCS: 36561; 76937; 77001; 99152; 99153; C1788

== ENCOUNTER → 2025-03-30 09:00 | Outpatient (REF) | payer OTHER, SELFPAY ==
[2025-03-30 09:44] LABS: % Basophils 0.6 % (0-2); % Eosinophils 3.6 % (0-6); % Immature Granulocytes 0.8 % (0-0.5); % Lymphocytes 26.3 % (20.5-51.1); % Monocytes 8.7 % (1.7-9.3); Absolute Basophils 0.1 10^3/uL (0-0.2); Absolute Eosinophils 0.3 10^3/uL (0-0.7); Absolute Immature Granulocytes 0.1 10^3/uL (0-0.05); Absolute Lymphocytes 2.3 10^3/uL (1.2-3.4); Absolute Monocytes 0.8 10^3/uL (0.1-0.6); Absolute Neutrophils 5.2 10^3/uL (1.4-6.5); Hematocrit 33.7 % (39.0-52.0); Hemoglobin 11.1 g/dL (13.0-18.0); Mean Corp Hgb Conc. 32.9 g/dL (33.0-37.0); Mean Corpuscular Hgb 28.3 pg (27.0-31.0); Mean Platelet Volume 9.9 fL (7.4-10.4); Nucleated Red Blood Cells % 0 % (-); Platelet Count 269 10^3/uL (130-400); Red Blood Cell Count 3.92 10^6/uL (4.70-6.10); Red Cell Dist. Width 15.2 % (11.5-14.5); White Blood Cell Count 8.7 10^3/uL (4.8-10.8)
[2025-03-30 10:55] LABS: ALT (SGPT) 17 U/L (0-50); AST (SGOT) 16 U/L (17-59); Albumin 4.4 g/dl (3.5-5.0); Alkaline Phosphatase 102 U/L (38-126); Blood Urea Nitrogen 17 mg/dl (9-20); Calcium 9.2 mg/dl (8.4-10.2); Carbon Dioxide 24 mmol/L (22-30); Chloride 105 mmol/L (98-107); Glucose 101 mg/dl (70-99); Potassium 4.2 mmol/L (3.5-5.1); Sodium 141 mmol/L (135-145); Total Bilirubin 0.5 mg/dl (0.2-1.3); Total Protein 6.5 g/dl (6.3-8.2); eGFR > 60.00
== END ==
LOC: REG 09:00
PROVIDERS: ATTENDING PHYSICIAN Internal Medicine Hematology & Oncology; FAMILY PHYSICIAN Student in an Organized Health Care Education/Training Program
DX: C61 Malignant neoplasm of prostate (principal); C79.51 Secondary malignant neoplasm of bone
CPT/HCPCS: 36415; 80053; 85025

== ENCOUNTER → 2025-04-19 11:35 | Outpatient (REF) | payer OTHER, SELFPAY ==
[2025-04-19 12:24] LABS: Hematocrit 36.9 % (39.0-52.0); Hemoglobin 12.1 g/dL (13.0-18.0); Mean Corp Hgb Conc. 32.8 g/dL (33.0-37.0); Mean Corpuscular Hgb 28.7 pg (27.0-31.0); Mean Corpuscular Volume 87.6 fL (80.0-94.0); Mean Platelet Volume 9.7 fL (7.4-10.4); Platelet Count 316 10^3/uL (130-400); Red Blood Cell Count 4.21 10^6/uL (4.70-6.10); Red Cell Dist. Width 16.4 % (11.5-14.5)
[2025-04-19 12:56] LABS: % Eosinophils 0.3 % (0-6); % Immature Granulocytes 5.8 % (0-0.5); % Lymphocytes 20.3 % (20.5-51.1); % Monocytes 8.1 % (1.7-9.3); % Neutrophils 64.5 % (42.2-75.2); ALT (SGPT) 16 U/L (0-50); AST (SGOT) 18 U/L (17-59); Absolute Basophils 0.1 10^3/uL (0-0.2); Absolute Immature Granulocytes 0.8 10^3/uL (0-0.05); Absolute Lymphocytes 2.7 10^3/uL (1.2-3.4); Absolute Monocytes 1.1 10^3/uL (0.1-0.6); Absolute Neutrophils 8.4 10^3/uL (1.4-6.5); Albumin 4.7 g/dl (3.5-5.0); Alkaline Phosphatase 79 U/L (38-126); Blood Urea Nitrogen 20 mg/dl (9-20); Calcium 9.6 mg/dl (8.4-10.2); Carbon Dioxide 25 mmol/L (22-30); Chloride 107 mmol/L (98-107); Glucose 103 mg/dl (70-99); Nucleated Red Blood Cells % 0 % (-); Potassium 4.5 mmol/L (3.5-5.1); Sodium 139 mmol/L (135-145); Total Bilirubin 0.4 mg/dl (0.2-1.3); Total Protein 7.4 g/dl (6.3-8.2); eGFR > 60.00
== END ==
LOC: REG 11:35
PROVIDERS: ATTENDING PHYSICIAN Internal Medicine Hematology & Oncology; FAMILY PHYSICIAN Student in an Organized Health Care Education/Training Program
DX: C61 Malignant neoplasm of prostate (principal); C79.51 Secondary malignant neoplasm of bone
CPT/HCPCS: 36415; 80053; 84153; 85025

== ENCOUNTER → 2025-05-09 15:51 | Outpatient (REF) | payer MEDICAID, OTHER, SELFPAY ==
[2025-05-09 16:43] LABS: % Basophils 1.2 % (0-2); % Eosinophils 0.3 % (0-6); % Immature Granulocytes 3.7 % (0-0.5); % Lymphocytes 19.2 % (20.5-51.1); % Monocytes 8.5 % (1.7-9.3); % Neutrophils 67.1 % (42.2-75.2); Absolute Basophils 0.1 10^3/uL (0-0.2); Absolute Immature Granulocytes 0.4 10^3/uL (0-0.05); Absolute Lymphocytes 2.2 10^3/uL (1.2-3.4); Absolute Neutrophils 7.7 10^3/uL (1.4-6.5); Hematocrit 36.3 % (39.0-52.0); Mean Corp Hgb Conc. 33.1 g/dL (33.0-37.0); Mean Corpuscular Volume 87.7 fL (80.0-94.0); Mean Platelet Volume 9.7 fL (7.4-10.4); Nucleated Red Blood Cells % 0 % (-); Platelet Count 306 10^3/uL (130-400); Red Blood Cell Count 4.14 10^6/uL (4.70-6.10); Red Cell Dist. Width 16.5 % (11.5-14.5); White Blood Cell Count 11.5 10^3/uL (4.8-10.8)
[2025-05-09 17:06] LABS: ALT (SGPT) 20 U/L (0-50); AST (SGOT) 22 U/L (17-59); Albumin 4.4 g/dl (3.5-5.0); Alkaline Phosphatase 70 U/L (38-126); Blood Urea Nitrogen 28 mg/dl (9-20); Calcium 9.6 mg/dl (8.4-10.2); Carbon Dioxide 28 mmol/L (22-30); Chloride 106 mmol/L (98-107); Glucose 107 mg/dl (70-99); Potassium 5.4 mmol/L (3.5-5.1); Sodium 139 mmol/L (135-145); Total Bilirubin 0.4 mg/dl (0.2-1.3); Total Protein 6.6 g/dl (6.3-8.2); eGFR > 60.00
== END ==
LOC: REG 15:51
PROVIDERS: ATTENDING PHYSICIAN Internal Medicine Hematology & Oncology; FAMILY PHYSICIAN Student in an Organized Health Care Education/Training Program
DX: C61 Malignant neoplasm of prostate (principal); C79.51 Secondary malignant neoplasm of bone
CPT/HCPCS: 36415; 80053; 84153; 85025

== ENCOUNTER → 2025-05-24 10:29 | Outpatient (REF) | payer MEDICARE, OTHER, SELFPAY | LOC: RAD 10:29 | PROVIDERS: ATTENDING PHYSICIAN Student in an Organized Health Care Education/Training Program | DX: J18.9 Pneumonia, unspecified organism (principal) | CPT/HCPCS: 71046 ==

== ENCOUNTER → 2025-06-06 13:52 | Outpatient (REF) | payer MEDICARE, SELFPAY ==
[2025-06-06 14:58] LABS: Hematocrit 37.0 % (39.0-52.0); Hemoglobin 12.5 g/dL (13.0-18.0); Mean Corp Hgb Conc. 33.8 g/dL (33.0-37.0); Mean Corpuscular Volume 87.5 fL (80.0-94.0); Nucleated Red Blood Cells % 0 % (-); Platelet Count 287 10^3/uL (130-400); Red Cell Dist. Width 15.2 % (11.5-14.5)
[2025-06-06 15:16] LABS: ALT (SGPT) 20 U/L (0-50); AST (SGOT) 19 U/L (17-59); Albumin 4.5 g/dl (3.5-5.0); Alkaline Phosphatase 73 U/L (38-126); Blood Urea Nitrogen 21 mg/dl (9-20); Calcium 10.1 mg/dl (8.4-10.2); Carbon Dioxide 27 mmol/L (22-30); Chloride 106 mmol/L (98-107); Glucose 97 mg/dl (70-99); Potassium 4.9 mmol/L (3.5-5.1); Sodium 138 mmol/L (135-145); Total Protein 6.8 g/dl (6.3-8.2); eGFR > 60.00
[2025-06-06 15:48] LABS: PSA, Total - Diagnostic 4.65 ng/ml (0.0-4.0)
== END ==
LOC: REG 13:52
PROVIDERS: ATTENDING PHYSICIAN Internal Medicine Hematology & Oncology; FAMILY PHYSICIAN Student in an Organized Health Care Education/Training Program
DX: C79.51 Secondary malignant neoplasm of bone (principal); C61 Malignant neoplasm of prostate
CPT/HCPCS: 36415; 80053; 84153; 85025

== ENCOUNTER → 2025-11-14 11:54 | Outpatient (REF) | payer MEDICARE, SELFPAY ==
[2025-11-14 12:41] VITALS: BP 134/87; BP_SYST 82
== END ==
LOC: RADI 11:54
PROVIDERS: ATTENDING PHYSICIAN Internal Medicine Hematology & Oncology; FAMILY PHYSICIAN Family Medicine
DX: Z45.2 Encounter for adjustment and management of vascular access device (principal); C61 Malignant neoplasm of prostate
CPT/HCPCS: 36590; 77001